=== PATIENT | female | born 1940 | race Two or more races ===

== ENCOUNTER 2017-04-25 09:21 | Outpatient (CLI) | payer MEDICARE, MEDICAID | END 2017-04-25 23:59 | disposition home or self-care (01) | LOC: RAD 09:21 | PROVIDERS: ATTEND Family Medicine | DX: J90 Pleural effusion, not elsewhere classified (principal); I70.0 Atherosclerosis of aorta | CPT/HCPCS: 71046 ==

== ENCOUNTER 2017-06-20 13:30 | Outpatient (CLI) | payer MEDICARE, MEDICAID | END 2017-06-20 23:59 | disposition home or self-care (01) | LOC: RAD 13:30 | PROVIDERS: ATTEND Family Medicine | DX: M17.0 Bilateral primary osteoarthritis of knee (principal); M85.862 Other specified disorders of bone density and structure, left lower leg; M85.861 Other specified disorders of bone density and structure, right lower leg | CPT/HCPCS: 73562 ==

== ENCOUNTER 2017-10-04 09:54 | Outpatient (CLI) | payer MEDICARE, MEDICAID | END 2017-10-04 23:59 | disposition home or self-care (01) | LOC: RAD 09:54 | PROVIDERS: ATTEND Family Medicine | DX: M18.11 Unilateral primary osteoarthritis of first carpometacarpal joint, right hand (principal) | CPT/HCPCS: 73130-TC ==

== ENCOUNTER 2018-04-24 13:45 | Emergency (ER) | payer MEDICARE, OTHER ==
[~2018-04-24] VITALS: Ht 167.6 cm; Wt 67.6 kg
--- NOTE | 2018-04-24 13:58 | NUR ---
BIB DAUGHTER 77 YEAR OLD FEMALE C/O LLE PAIN X 1 WEEK, WAS AT URGENT CARE AND WAS +DVT, LLE, ALERT AND ORIENTED X4 SHE IS ABLE TO VERBALIZE NEEDS IN HER [place] LANGUAGE, BREATHING EVEN AND UNLABORED WITH NO DISTRESS NOTED. SKIN WARM TO TOUCH AND INTACT. AWAITING TO BE SEEN BY MD.
--- NOTE | 2018-04-24 14:30 | NUR ---
AIR INTERCEPT CONTROLLER AT BEDSIDE
[2018-04-24 14:45] LABS: BASOPHILS % (AUTO) 0.8 % (0.0-2.0); EOSINOPHILS % (AUTO) 1.8 % (0.0-6.0); HEMATOCRIT 42 % (33-45); HEMOGLOBIN 13.8 g/dL (11.5-14.8); LYMPHOCYTES % (AUTO) 37.4 % (20.0-44.0); MEAN CORPUSCULAR HGB CONC 33 g/dl (31.0-36.0); MEAN CORPUSCULAR VOLUME 92 fL (82-100); MONOCYTES # (AUTO) 0.4 /CMM (0.1-1.30); MONOCYTES % (AUTO) 6.9 % (2.0-12.0); NEUTROPHILS # (AUTO) 2.9 /CMM (1.8-8.9); NEUTROPHILS % (AUTO) 53.1 % (43.0-81.0); PLATELET COUNT (AUTO) 225 /CMM (150-450); RED BLOOD CELL COUNT(AUTO) 4.55 MIL/uL (4.0-5.2); WHITE BLOOD COUNT (AUTO) 5.4 K/uL (4.3-11.0)
[2018-04-24 14:56] LABS: CALCIUM, SERUM 9.2 mg/dL (8.5-10.1); CARBON DIOXIDE 28 mmol/L (21-32); CHLORIDE 105 mmol/L (98-107); GLUCOSE 195 mg/dL (74-106); POTASSIUM 3.9 mmol/L (3.5-5.1); SODIUM SERUM 139 mmol/L (136-145); UREA NITROGEN, BLOOD 22 mg/dL (7-18)
--- NOTE | 2018-04-24 15:05 | NUR ---
U/S TECH AT BEDSIDE
--- NOTE | 2018-04-24 16:23 | NUR ---
Patient discharged to home in stable condition. Written and verbal after care instructions given. Patient verbalizes understanding of instruction.
[2018-04-24 16:24] VITALS: BP 128/66
== END 2018-04-24 16:25 | disposition home or self-care (01) ==
LOC: ER 13:48
DX: I82.412 Acute embolism and thrombosis of left femoral vein (principal); I10 Essential (primary) hypertension; M19.90 Unspecified osteoarthritis, unspecified site; Z90.89 Acquired absence of other organs; Z90.10 Acquired absence of unspecified breast and nipple; Z90.710 Acquired absence of both cervix and uterus; Z98.890 Other specified postprocedural states
CPT/HCPCS: 36415; 80048; 85025; 85730; 93971; 99284; A4606